=== PATIENT | female | born 1985 | race Caucasian/White ===

== ENCOUNTER 2021-11-10 14:59 | Emergency (ER) | payer BC, SELFPAY ==
[2021-11-10 15:34] VITALS: BP 111/67; PULSE 106; RESP 18; TEMP 36.6; O2SAT 100
--- NOTE | 2021-11-10 15:43 | ED.EAR ---
HPI - Ear Problem General Chief complaint: Ear Stated complaint: bilateral ear pain Time Seen by Provider: 11/10/21 15:43 Source: patient Mode of arrival: ambulatory Limitations: no limitations History of Present Illness HPI Narrative: 35-year-old female presents with complaint of pain and pressure to both ears, postnasal drainage for 1 week. Reports that she started Claritin 2 days ago and pain is improving. Afebrile. Patient is 17 weeks , went to her OB office today but they would not look in her ears for her. No hearing changes or dizziness. All systems reviewed and negative except as noted above. Related Data Home Medications Medication Instructions Recorded Confirmed No Home Medications 11/10/21 11/10/21 Allergies Allergy/AdvReac Type Severity Reaction Status Date / Time amoxicillin Allergy Unknown Swelling Verified 11/10/21 15:43 Sulfa (Sulfonamide Allergy Unknown Vomiting Verified 11/10/21 15:43 Antibiotics) Review of Systems Review of Systems: CONSTITUTIONAL: Denies fever, chills, or sweats. EYES: Denies visual changes, redness, or discharge. ENT: Denies rhinorrhea, congestion, sore throat. Reports ear pain and pressure, postnasal drainage. CARDIOVASCULAR: Denies chest pain, palpitations, or edema. RESPIRATORY: Denies cough or dyspnea. GASTROINTESTINAL: Denies abdominal pain, nausea, vomiting, or diarrhea. GENITOURINARY: Denies dysuria or hematuria. SKIN: Denies rash or itching. MUSCULOSKELETAL: Denies back pain, joint pain, or myalgia. NEUROLOGIC: Denies headache, numbness, or weakness. PSYCHIATRIC: Denies anxiety or depression. All other systems reviewed are negative, except as documented in HPI. PMFSH Comments At time of signature, agree with nursing past medical, surgical, social and family history. There is no relevant family history pertinent to the presenting complaint. Exam Narrative: GENERAL: This is a well-nourished, well-developed patient, in no apparent distress. HEAD: normocephalic, atraumatic. EYES: PERRL. Sclera clear/white. Vision is grossly intact. EARS: External ears normal, auditory canals clear and without drainage, mild fluid to bilateral TMs. No erythema or bulging. No perforation. NOSE: External nose normal with no obvious nasal discharge, nares without redness, no rhinorrhea. THROAT: Mucous membranes moist, posterior pharynx clear. Mild clear postnasal drainage. NECK: Neck supple, non-tender without lymphadenopathy, masses or thyromegaly. CARDIOVASCULAR: Regular rate and rhythm without murmurs, gallops, or rubs. RESPIRATORY: Clear to auscultation. Breath sounds equal bilaterally. No wheezes, rales, or rhonchi. SKIN: warm, Dry, intact with no suspicious lesions or rash, good texture and turgor. NEURO: awake, alert, and oriented to person, place and time. There were no obvious focal neurologic abnormalities. EXTREMITIES: Normal range of motion to all extremities. Course Course Level of Care: Express Care Visit Vital Signs Vital signs: Vital Signs Temperature 36.6 C 11/10/21 15:34 Pulse Rate 106 H 11/10/21 15:34 Respiratory Rate 18 11/10/21 15:34 Blood Pressure 111/67 11/10/21 15:34 Pulse Oximetry 100 11/10/21 15:34 Oxygen Delivery Room Air 11/10/21 15:34 Temperature 36.6 C 11/10/21 15:34 Pulse Rate 106 H 11/10/21 15:34 Respiratory Rate 18 11/10/21 15:34 Blood Pressure 111/67 11/10/21 15:34 Pulse Oximetry 100 11/10/21 15:34 Oxygen Delivery Room Air 11/10/21 15:34 Reviewed Medical Decision Making MDM Narrative Medical decision making narrative: No ear infection noted. No exam findings concerning for bacterial sinusitis. Recommend continue Claritin, will add Flonase and Sudafed as needed. Patient is aware of diagnosis, understands and agrees to treatment plan. Anticipatory guidance given. Patient agrees to follow-up as directed and is aware of reasons to seek care at the emergency department. Portions of
== END 2021-11-10 15:53 | disposition home or self-care (01) ==
PROVIDERS: Emergency Provider Nurse Practitioner Family; PCP Internal Medicine
DX: H69.93 Unspecified Eustachian tube disorder, bilateral (principal); R09.82 Postnasal drip
CPT/HCPCS: 99211; G0463

== ENCOUNTER 2024-05-12 08:15 | Emergency (ER) | payer OTHER, SELFPAY ==
--- NOTE | 2024-05-12 08:22 | ED.URI ---
HPI - URI/Sore Throat General Chief Complaint: Upper Respiratory Infection Stated Complaint: Sore Throat Time Seen by Provider: 05/12/24 08:17 Source: patient Mode of arrival: ambulatory Limitations: no limitations History of Present Illness HPI Narrative: Caryn is a 38-year-old female patient presenting to the clinic today with complaints of sore throat times 1-2 days. She reports that the sore throat is very painful thinks she may have tonsillitis. She denies any fever, chills, body aches, or URI symptoms. MD elicited complaint: sore throat Related Data Home Medications Medication Instructions Recorded Confirmed No Home Medications 11/10/21 05/12/24 Allergies Allergy/AdvReac Type Severity Reaction Status Date / Time amoxicillin Allergy Unknown Swelling Verified 05/12/24 08:25 Sulfa (Sulfonamide Allergy Unknown Vomiting Verified 05/12/24 08:25 Antibiotics) Review of Systems Review of Systems: Pertinent positives per HPI. Patient denies any fever, chills, rash, headache, visual changes, dizziness, cough, shortness of breath, chest pain, palpitations, nausea, vomiting, diarrhea, constipation, abdominal pain, or any urinary issues. PMFSH Comments At the time of my signature, I reviewed and agree with the nursing past medical, surgical, social, and family history. There is no relevant family history pertinent to the patient complaint. Exam Narrative: General: Well-developed, well nourished, in no apparent distress Head: Normocephalic, atraumatic Eyes: Pupils equally round and reactive to light bilaterally, EOM intact, sclera and conjunctive clear, no discharge, lids normal Ears: TMs intact and clear, ear canals clear, no drainage, grossly hearing normal. Nose: Nares patent, no discharge, no inflammation, no sinus tenderness. Mouth: Oral pharynx red with bilateral tonsillar enlargement without lesions or masses, good dentition, MMM. Neck: Supple, trachea midline, no enlargement of anterior or posterior cervical nodes, no thyroid masses or goiter palpable. Cardio: Regular rate and rhythm, s1 and s2 normal, no murmur appreciated. Resp: Clear to auscultation bilaterally, no rhonchi, rales, wheezing or rubs Course Course Emergency Course: Portions of this record may have been created with voice recognition software. Level of Care: Express Care Visit Vital Signs Vital signs: Vital Signs Temperature 36.7 C 05/12/24 08:31 Pulse Rate 92 05/12/24 08:31 Respiratory Rate 16 05/12/24 08:31 Blood Pressure 108/84 05/12/24 08:31 Pulse Oximetry 99 05/12/24 08:31 Temperature 36.7 C 05/12/24 08:31 Pulse Rate 92 05/12/24 08:31 Respiratory Rate 16 05/12/24 08:31 Blood Pressure 108/84 05/12/24 08:31 Pulse Oximetry 99 05/12/24 08:31 Vital signs reviewed MDM - URI/Sore Throat MDM Narrative Medical decision making narrative: At the time of visit patient is resting comfortably on the exam table. Patient appears to be nontoxic. Labs: Strep test was negative in the clinic today. Strep culture was sent to the lab Plan: I suspect patient has viral pharyngitis. We will send strep for culture. Supportive measures were discussed with the patient and they voiced understanding discharge instructions and agrees to treatment plan. Return precautions reviewed Differential Diagnosis Differential diagnosis: Likely upper respiratory infection, otitis media, sinusitis, viral infection, bronchitis, influenza, pharyngitis and other (COVID) Lab Data Labs: Lab Results 05/12/24 Range/Units 08:38 POC Grp A Strep Screen Pending Discharge Plan Discharge Clinical Impression: Pharyngitis Qualifiers: Pharyngitis/tonsillitis etiology: unspecified etiology Qualified Code(s): J02.9 - Acute pharyngitis, unspecified Patient Disposition: Home, Self-Care Condition: Stable Instructions: Antibiotic Form, Pharyngitis (ED) Additional Instructions: Strep test was negative in the clinic today. We will send strep for culture. Increase fluids and stay well hydrated Tylenol/motrin for pain/fever Flonase and OTC antihistamines as directed Vicks vapor rub to open sinuses Sinus rinses for congestion Cepacol spray, cough drops, throat lozenges, warm tea with honey/lemon, gargle salt water to soothe throat BRAT diet for diarrhea Clear liquids x 24 hours then advance as tolerated for nausea/vomiting Go to the ED if you develop a worsening in your condition- high fever not controlled by Tylenol or Motrin, dehydration, weakness, lethargy, shortness of breath, or chest pain. Follow up with your PCP in 3-5 days if symptoms persist. Prescriptions: No Action No Home Medications Follow-up/Referrals: Jules,BISHOP SheehanP [Primary Care Provider] - Time of Disposition: 08:40 Quality NIHSS Nursing Documentation ED NIHSS nursing documentation: reviewed/agree
[2024-05-12 08:31] VITALS: BP 108/84; PULSE 92; RESP 16; TEMP 36.7; O2SAT 99
[2024-05-12 08:41] LABS: EDSTREPNEGPOS1 Negative (Negative)
== END 2024-05-12 08:45 | disposition home or self-care (01) ==
PROVIDERS: Emergency Provider Nurse Practitioner Family; PCP Nurse Practitioner Family
DX: J02.9 Acute pharyngitis, unspecified (principal)
CPT/HCPCS: 87081; 87880; 99213; G0463

== ENCOUNTER 2024-06-14 08:30 | Outpatient (CLI) | payer OTHER, SELFPAY ==
--- NOTE | 2024-06-14 11:00 | NEURO_ITS ---
Impression: # Complains of numbness of hands more so during . ? # Normal Nerve Conduction Study. No Carpal Tunnel Syndrome or ulnar neuropathy. ? # Normal needle/EMG exam. ? # Clinical correlation recommended. Nerve Conduction Studies Anti Sensory Summary Table ?Stim Site NR Peak (ms) P-T Amp (?V) Site1 Site2 Delta-P (ms) Dist (cm) Richy (m/s) Left Median Anti Sensory (2-3nd Digit) Wrist ? 2.7 73.9 Wrist 2-3nd Digit 2.7 14.0 52 Wrist ? 2.8 76.3 Wrist 2-3nd Digit 2.7 14.0 52 Right Median Anti Sensory (2-3nd Digit) Wrist ? 2.8 65.7 Wrist 2-3nd Digit 2.8 14.0 50 Wrist ? 2.9 77.6 Wrist 2-3nd Digit 2.8 14.0 50 Left Radial Anti Sensory (Base 1st Digit) Wrist ? 1.8 33.3 Wrist Base 1st Digit 1.8 0.0 Right Radial Anti Sensory (Base 1st Digit) Wrist ? 2.0 31.7 Wrist Base 1st Digit 2.0 0.0 Left Ulnar Anti Sensory (5th Digit) Wrist ? 2.1 53.7 Wrist 5th Digit 2.1 14.0 67 Right Ulnar Anti Sensory (5th Digit) Wrist ? 2.4 52.5 Wrist 5th Digit 2.4 14.0 58 Motor Summary Table ?Stim Site NR Onset (ms) O-P Amp (mV) Site1 Site2 Delta-0 (ms) Dist (cm) Richy (m/s) Left Median Motor (Abd Poll Brev) Wrist ? 3.0 4.9 Elbow Wrist 3.8 26.0 68 Elbow ? 6.8 4.7 Right Median Motor (Abd Poll Brev) Wrist ? 3.1 6.5 Elbow Wrist 3.9 26.0 67 Elbow ? 7.0 6.3 Left Ulnar Motor (Abd Dig Minimi) Wrist ? 2.3 8.5 A Elbow Wrist 4.1 28.0 68 A Elbow ? 6.4 8.7 Right Ulnar Motor (Abd Dig Minimi) Wrist ? 2.6 8.9 A Elbow Wrist 4.0 27.0 68 A Elbow ? 6.6 8.5 F Wave Studies ?NR F-Lat (ms) L-R F-Lat (ms) Left Median (Mrkrs) (Abd Poll Brev) ? 23.63 0.35 Right Median (Mrkrs) (Abd Poll Brev) ? 23.28 0.35 Left Ulnar (Mrkrs) (Abd Dig Min) ? 23.13 0.31 Right Ulnar (Mrkrs) (Abd Dig Min) ? 23.44 0.31 EMG ?Side Muscle Nerve Root Ins Act Fibs Amp Dur Recrt Comment Right 1stDorInt Ulnar C8-T1 Nml Nml Nml Nml Nml Right Ext Indicis Radial (Post Int) C7-8 Nml Nml Nml Nml Nml Right Ext Digitorum Radial (Post Int) C7-8 Nml Nml Nml Nml Nml Right BrachioRad Radial C5-6 Nml Nml Nml Nml Nml Right PronatorTeres Median C6-7 Nml Nml Nml Nml Nml Right Abd Poll Brev Median C8-T1 Nml Nml Nml Nml Nml Right ABD Dig Min Ulnar C8-T1 Nml Nml Nml Nml Nml Left 1stDorInt Ulnar C8-T1 Nml Nml Nml Nml Nml Left Ext Indicis Radial (Post Int) C7-8 Nml Nml Nml Nml Nml Left Ext Digitorum Radial (Post Int) C7-8 Nml Nml Nml Nml Nml Left BrachioRad Radial C5-6 Nml Nml Nml Nml Nml Left PronatorTeres Median C6-7 Nml Nml Nml Nml Nml Left Abd Poll Brev Median C8-T1 Nml Nml Nml Nml Nml Left ABD Dig Min Ulnar C8-T1 Nml Nml Nml Nml Nml MTDD
== END 2024-06-14 08:31 | disposition home or self-care (01) ==
PROVIDERS: PCP Nurse Practitioner Family; Visit Provider Nurse Practitioner Family
DX: R20.0 Anesthesia of skin (principal); R20.2 Paresthesia of skin
CPT/HCPCS: 95886; 95911